=== PATIENT | female | born 1965 | race Caucasian/White ===

== ENCOUNTER → 2020-10-08 | Outpatient (CLI) | payer OTHER ==
[~2020-10-08] MED LIST: ANTIVERT 12.512.5 MG PO; CIPRO500 MG PO; DAPSONE25 MG PO; ELAVIL 25 MG TA25 MG PO; MICROZIDE12.5 MG PO; PHENERGAN 25 MG25 M1 PO; VITAMIN D250000 UNIT PO; ZOCOR40 MG PO; ZOFRAN4 MG PO
== END ==
LOC: CT 07-17 13:30
DX: I72.9 Aneurysm of unspecified site (principal); Z98.890 Other specified postprocedural states
CPT/HCPCS: 70496; Q9967

== ENCOUNTER → 2020-10-24 | Outpatient (CLI) | payer OTHER ==
[2020-10-24 13:36] LABS: HEMOGLOBIN 12.2 gm/dl (12.3-15.3); RED BLOOD COUNT 3.85 M/UL (4.00-5.10); WHITE BLOOD COUNT 5.5 K/UL (4.5-11.0)
== END ==
LOC: LAB 12:41
PROVIDERS: Internal Medicine
DX: E78.5 Hyperlipidemia, unspecified (principal); K52.9 Noninfective gastroenteritis and colitis, unspecified; D51.0 Vitamin B12 deficiency anemia due to intrinsic factor deficiency; E55.9 Vitamin D deficiency, unspecified
CPT/HCPCS: 36415; 80048; 80061; 80076; 82607; 84443; 85025

== ENCOUNTER → 2021-06-25 | Outpatient (CLI) | payer OTHER | LOC: KOH-I 14:35 | DX: M47.26 Other spondylosis with radiculopathy, lumbar region (principal) | CPT/HCPCS: 72110 ==

== ENCOUNTER → 2021-07-01 | Outpatient (CLI) | payer OTHER | LOC: ECHO 09:00 | DX: R06.02 Shortness of breath (principal); R60.9 Edema, unspecified; I08.1 Rheumatic disorders of both mitral and tricuspid valves | CPT/HCPCS: ECHO; 93306 ==

== ENCOUNTER → 2021-12-17 | Outpatient (CLI) | payer OTHER | LOC: CT 14:30 | DX: R10.9 Unspecified abdominal pain (principal); D72.9 Disorder of white blood cells, unspecified; R77.2 Abnormality of alphafetoprotein | CPT/HCPCS: 96360; Q9967 ==